=== PATIENT | female | born 1975 | race Caucasian/White ===

== ENCOUNTER 2018-09-21 13:31 | Emergency (ER) | payer OTHER ==
[2018-09-21 13:35] VITALS: BP 131/90; TEMP 97.7; BMI 26.5
--- NOTE | 2018-09-21 16:44 | DI ---
EXAM: Three views of the right ankle. History: Right ankle pain. Findings: No acute fracture or dislocation. No abnormal calcifications or radiopaque foreign bodies . Mild lateral soft tissue swelling at the ankle. Impression: No acute osseous abnormality. Mild lateral soft tissue swelling
--- NOTE | 2018-09-21 16:50 | ED.PDOC ---
General ED Provider: Dr. ANUEL THOMPSON Chief Complaint: Ankle Pain/Injury Stated Complaint: RIGHT FOOT AND ANKLE PAIN Time Seen by Physician: 13:33 (BLUE PRESENT AT ALL TIMES ) Mode of Arrival: Wheelchair Information Source: Patient Exam Limitations: No limitations Nursing and Triage Documentation Reviewed and Agree: Yes Does patient meet sepsis criteria?: No System Inflammatory Response Syndrome: Not Applicable Sepsis Protocol: For patient's 13 years and over: Temp is 96.8 and below OR 101 and greater Pulse >90 BPM Resp >20/minute Acutely Altered Mental Status Are patient's symptoms suggestive of a new infection, such as: -Pneumonia -Skin, Soft Tissue -Endocarditis -UTI -Bone, Joint Infection -Implantable Device -Acute Abdominal Infection -Wound Infection -Meningitis -Blood Stream Catheter Infection -Unknown Musculoskeletal Complaint Exam - Ankle/Foot Complaint/Exam Location of Injury: Reports: Right, Ankle, Foot Review of Systems - Review Of Systems Constitutional: Reports: No symptoms Eyes: Reports: No symptoms Ears, Nose, Mouth, Throat: Reports: No symptoms Respiratory: Reports: No symptoms Cardiac: Reports: No symptoms GI: Reports: No symptoms : Reports: No symptoms Musculoskeletal: Reports: Joint pain (RIGHT ANKLE, FOOT) Skin: Reports: No symptoms Neurological: Reports: No symptoms Endocrine: Reports: No symptoms Hematologic/Lymphatic: Reports: No symptoms All Other Systems: Reviewed and Negative Past Medical History - Past Medical History Previously Healthy: Yes Endocrine: Reports: None Cardiovascular: Reports: Hypertension Respiratory: Reports: None Hematological: Reports: None Gastrointestinal: Reports: None Genitourinary: Reports: None Neuro/Psych: Reports: None Musculoskeletal: Reports: None Cancer: Reports: None Last Menstrual Period: 2 weeks ago Other Pertinent Past Medical History: x 2 after tubal - Surgical History General Surgical History: Reports: Tubal ligation, Cholecystectomy, Orthopedic ( tailbone) - Family History Family History: Reports: Other (no one else ill), Unknown - Social History Smoking Status: Former smoker Hx Substance Use: Yes (per Hx, marijuana) Alcohol Screening: None Physical Exam - Physical Exam Appearance: Well-appearing, No pain distress, Well-nourished Eyes: SLOANE, EOMI, Conjunctiva clear ENT: Ears normal, Nose normal, Oropharynx normal Respiratory: Airway patent, Breath sounds clear, Breath sounds equal, Respirations nonlabored Cardiovascular: RRR, Pulses normal, No rub, No murmur GI/: Soft, Nontender, No masses, Bowel sounds normal, No Organomegaly Musculoskeletal: No edema, Limited ROM (RIGHT FOOT) Skin: Warm, Dry, Normal color Neurological: Sensation intact, Motor intact, Reflexes intact, Cranial nerves intact, Alert, Oriented Psychiatric: Affect appropriate, Mood appropriate Interpretation - Radiology Interpretation Radiology Interpretation By: Radiologist Radiology Results: No acute changes Critical Care Note - Critical Care Note Total Time (mins): 0 Course - Course Orders, Labs, Meds: Orders Category Date Time Status ANKLE, RIGHT MIN 3 VIEWS Stat RADS 09/21/18 16:13 Completed FOOT, RIGHT 3 VIEWS Stat RADS 09/21/18 16:12 Completed Vital Signs: Temp Pulse Resp BP Pulse Ox 09/21/18 13:32 97.7 F 94 H 18 131/90 98 Departure - Departure Time of Disposition: 16:55 Disposition: HOME SELF-CARE Discharge Problem: Sprain of foot, right Qualifiers: Encounter type: initial encounter Qualified Code(s): S93.601A - Unspecified sprain of right foot, initial encounter Instructions: Foot Sprain (ED) Condition: Good Pt referred to PMD for follow-up: Yes IPMP verified?: No Allergies/Adverse Reactions: Allergies morphine Adverse Reaction (Verified 09/21/18 13:35) tramadol Adverse Reaction (Verified 09/21/18 13:35) Home Medications: Ambulatory Orders Hydrocodone/Acetaminophen [Kimberly 5-325 Tablet] 1 each PO Q6HR PRN #7 tablet 12/04
--- NOTE | 2018-09-21 16:52 | DI ---
EXAM: Three views of the right foot. History: Right foot pain. Findings: No acute fracture or dislocation. No abnormal calcifications or radiopaque foreign bodies . Joint spaces are relatively preserved. There is soft tissue swelling seen at the ankle. Impression: No acute osseous abnormality.
== END 2018-09-21 17:07 | disposition home or self-care (01) ==
LOC: ED 13:31
DX: S93.601A Unspecified sprain of right foot, initial encounter (principal); X50.1XXA Overexertion from prolonged static or awkward postures, initial encounter
CPT/HCPCS: 99283